=== PATIENT | female | born 1950 | race Caucasian/White ===

== ENCOUNTER 2020-06-25 19:09 | Emergency (ER) | payer OTHER ==
[~2020-06-25] VITALS: Wt 81.6 kg
[2020-06-25 20:16] LABS: BASO # 0.1 10*3/uL (0.0-0.1); BASO % 0.8 % (0.0-1.0); EOS # 0.4 10*3/uL (0.0-0.4); EOS % 4.5 % (1.0-4.0); HEMATOCRIT 42.6 % (37.0-47.0); LYMPH # 3.2 10*3/uL (1.3-4.4); LYMPH % 40.8 % (27.0-41.0); MEAN CELL VOLUME 89.9 fl (81.0-99.0); MEAN CORPUSCULAR HGB 30.4 pg (27.0-31.0); MEAN CORPUSCULAR HGB CONC 33.8 g/dl (33.0-37.0); MEAN PLATELET VOLUME 9.2 fl (9.6-12.3); MONO # 0.7 10*3/uL (0.1-1.0); MONO % 8.7 % (3.0-9.0); NEUT # 3.6 10*3/uL (2.3-7.9); NEUT % 44.9 % (47.0-73.0); PLATELET COUNT AUTOMATED 282 10*3/uL (130-400); RED BLOOD COUNT 4.74 10*6/uL (4.10-5.10); RED CELL DISTRI WIDTH 12.2 % (0-14.5); WHITE BLOOD COUNT 7.9 10*3/uL (4.8-10.8)
[2020-06-25 20:48] LABS: ALBUMIN 3.9 gm/dl (3.1-4.5); ALKALINE PHOSPHATASE 132 U/L (45-117); BUN 14 mg/dl (7-24); CHLORIDE 107 mmol/L (98-107); CREATININE 0.76 mg/dL (0.55-1.02); POTASSIUM 3.4 mmol/L (3.5-5.1); SGOT/AST 25 IU/L (3-35); SGPT/ALT 38 U/L (12-78); SODIUM 143 mmol/L (136-145); TOTAL PROTEIN 7.9 gm/dL (6.4-8.2)
[2020-06-25 20:52] LABS: TROPONIN I < 0.015 ng/ml (<0.045)
[2020-06-25] MEDS ORDERED: BENICAR20 MG PO (22:37)
== END 2020-06-25 22:45 | disposition home or self-care (01) ==
LOC: ED 19:09
PROVIDERS: Emergency Medicine
DX: I10 Essential (primary) hypertension (principal)

== ENCOUNTER 2023-01-02 13:03 | Emergency (ER) | payer OTHER ==
[~2023-01-02] VITALS: Ht 152.4 cm; Wt 74.8 kg
[~2023-01-02 13:03] MED LIST: BENICAR20 MG PO; PHENERGAN25 M3 PO
[2023-01-02] MEDS ORDERED: OXYBUTYNIN10 MG PO (13:27)
[2023-01-02] MEDS ORDERED: LISINOPRIL5 MG PO (13:28)
[2023-01-02] MEDS ORDERED: PREDNISONE50 MG PO (15:00)
== END 2023-01-02 15:06 | disposition home or self-care (01) ==
LOC: ED 13:03
DX: M10.9 Gout, unspecified (principal); I10 Essential (primary) hypertension; Z91.040 Latex allergy status

== ENCOUNTER 2023-07-15 08:54 | Emergency (ER) | payer OTHER ==
[~2023-07-15] VITALS: Ht 152.4 cm; Wt 81.6 kg
[~2023-07-15 08:54] MED LIST changes: +AMOXICILLIN500 M3 PO; +BUMETANIDE1 MG PO; +LEVOFLOXACIN750 M2 PO; +LISINOPRIL5 MG PO; +OXYBUTYNIN10 MG PO; +PREDNISONE50 MG PO; +ZESTRIL20 MG PO
[2023-07-15 09:05] VITALS: BP 134/74
[2023-07-15 09:25] LABS: BASO # 0.1 10*3/uL (0.0-0.1); BASO % 0.6 % (0.0-1.0); EOS # 0.2 10*3/uL (0.0-0.4); EOS % 2.5 % (1.0-4.0); HEMATOCRIT 41.8 % (37.0-47.0); LYMPH # 1.7 10*3/uL (1.3-4.4); LYMPH % 16.9 % (27.0-41.0); MEAN CELL VOLUME 92.3 fl (81.0-99.0); MEAN CORPUSCULAR HGB 29.1 pg (27.0-31.0); MEAN CORPUSCULAR HGB CONC 31.6 g/dl (33.0-37.0); MEAN PLATELET VOLUME 9.2 fl (9.6-12.3); MONO # 0.6 10*3/uL (0.1-1.0); MONO % 5.8 % (3.0-9.0); NEUT # 7.2 10*3/uL (2.3-7.9); NEUT % 73.8 % (47.0-73.0); PLATELET COUNT AUTOMATED 224 10*3/uL (130-400); RED BLOOD COUNT 4.53 10*6/uL (4.10-5.10); RED CELL DISTRI WIDTH 12.4 % (0-14.5); WHITE BLOOD COUNT 9.8 10*3/uL (4.8-10.8)
[2023-07-15] MEDS ORDERED: ZESTRIL10 MG PO (09:44)
[2023-07-15] MEDS ORDERED: POTASSIUM99 M7 PO (09:44)
[2023-07-15] MEDS ORDERED: AMOXICILLIN500 M3 PO (09:45)
[2023-07-15] MEDS ORDERED: LEVOFLOXACIN750 M2 PO (09:46)
[2023-07-15 09:47] LABS: ALKALINE PHOSPHATASE 106 U/L (46-116); BUN 10 mg/dl (9-23); CHLORIDE 104 mmol/L (98-107); LIPASE 34 U/L (12-53); POTASSIUM 3.2 mmol/L (3.4-5.1); SGPT/ALT 16 U/L (5-49)
[2023-07-15] MEDS ORDERED: SODIUM CHLORIDE 0.9% 1,000 ML IV SCH (09:55)
[2023-07-15] MEDS ORDERED: Ceftriaxone Sodium 1 GM/10 ML SYR IV ONE (10:45)
[2023-07-15 10:47] VITALS: BP 130/72
[2023-07-15 12:03] VITALS: BP 136/80
[2023-07-15] MEDS ORDERED: ASPIRIN, CHEWABLE 81 MG TAB PO ONE (12:30)
[2023-07-15] MEDS ORDERED: HEPARIN SODIUM 25,000 UNITS/250 ML BAG IV SCH (12:30)
[2023-07-15] MEDS ORDERED: Metoprolol Tartrate 25 MG TAB PO ONE (12:30)
[2023-07-15] MEDS ORDERED: POTASSIUM CHLORIDE 20 MEQ TAB PO ONE (12:35)
[2023-07-15] MEDS ORDERED: IOHEXOL 350 MG/ML 100 ML VIAL IV ONE ×2 (13:05→13:24)
[2023-07-15] MEDS ORDERED: SODIUM CHLORIDE 0.9% 100 ML BAG IV ONE (13:05)
[2023-07-15 13:16] LABS: ACT PARTIAL THROMBO TIME 27.1 SECONDS (20.0-32.1)
[2023-07-15] MEDS ORDERED: SODIUM CHLORIDE 0.9% 100 ML IV ONE (13:23)
[2023-07-15] MEDS ORDERED: BISACODYL 5 MG TAB PO PRN (13:45)
[2023-07-15] MEDS ORDERED: Acetaminophen/Hydrocodone 5 MG/325 MG TABLET PO PRN (13:45)
[2023-07-15] MEDS ORDERED: Magnesium Hydroxide 30 ML UDC PO PRN (13:45)
[2023-07-15] MEDS ORDERED: ACETAMINOPHEN 650 MG SUPP R PRN (13:45)
[2023-07-15] MEDS ORDERED: Ondansetron Hydrochloride 4 MG/2 ML VIAL IV PRN (13:45)
[2023-07-15] MEDS ORDERED: BISACODYL 10 MG SUPP R PRN (13:45)
[2023-07-15] MEDS ORDERED: ACETAMINOPHEN 325 MG TAB PO PRN (13:45)
[2023-07-15] MEDS ORDERED: ATORVASTATIN CALCIUM 80 MG TAB PO SCH (13:55)
[2023-07-15 15:15] VITALS: BP 126/79
[2023-07-15 17:35] VITALS: BP 128/80
[2023-07-15] MEDS ORDERED: Metoprolol Tartrate 25 MG TAB PO SCH (22:00)
[2023-07-16] MEDS ORDERED: Pantoprazole Sodium 40 MG VIAL IV SCH (06:00)
[2023-07-16] MEDS ORDERED: ASPIRIN ENTERIC COATED 81 MG TAB PO SCH (10:00)
== END 2023-07-15 19:06 | disposition admitted as inpatient to this hospital (09) ==
LOC: ED 08:54 → EDHOLD 12:47 → ED 19:06
PROVIDERS: Internal Medicine
DX: E87.6 Hypokalemia (principal); R65.20 Severe sepsis without septic shock; N39.0 Urinary tract infection, site not specified; I21.4 Non-ST elevation (NSTEMI) myocardial infarction; I11.0 Hypertensive heart disease with heart failure; I50.9 Heart failure, unspecified; Z91.040 Latex allergy status; Z90.89 Acquired absence of other organs

== ENCOUNTER 2023-10-19 17:56 | Inpatient (IN) | payer OTHER, MEDICARE ==
[~2023-10-19] VITALS: Ht 152.4 cm; Wt 88.6 kg
[~2023-10-19 17:56] MED LIST changes: +POTASSIUM99 M7 PO; +ZESTRIL10 MG PO
[2023-10-19 18:03] VITALS: BP 112/60
[2023-10-19 18:46] LABS: BASO # 0.1 10*3/uL (0.0-0.1); BASO % 0.5 % (0.0-1.0); EOS # 0.2 10*3/uL (0.0-0.4); EOS % 1.9 % (1.0-4.0); HEMATOCRIT 36.5 % (37.0-47.0); LYMPH # 1.4 10*3/uL (1.3-4.4); LYMPH % 11.1 % (27.0-41.0); MEAN CELL VOLUME 92.2 fl (81.0-99.0); MEAN CORPUSCULAR HGB 30.3 pg (27.0-31.0); MEAN CORPUSCULAR HGB CONC 32.9 g/dl (33.0-37.0); MEAN PLATELET VOLUME 9.2 fl (9.6-12.3); MONO # 1.1 10*3/uL (0.1-1.0); MONO % 8.5 % (3.0-9.0); NEUT # 9.6 10*3/uL (2.3-7.9); NEUT % 77.7 % (47.0-73.0); PLATELET COUNT AUTOMATED 244 10*3/uL (130-400); RED BLOOD COUNT 3.96 10*6/uL (4.10-5.10); RED CELL DISTRI WIDTH 12.6 % (0-14.5); WHITE BLOOD COUNT 12.4 10*3/uL (4.8-10.8)
[2023-10-19 19:09] LABS: ALKALINE PHOSPHATASE 95 U/L (46-116); BUN 10 mg/dl (9-23); CHLORIDE 103 mmol/L (98-107); POTASSIUM 3.8 mmol/L (3.4-5.1); SGPT/ALT 18 U/L (5-49)
[2023-10-19 19:44] LABS: BILIRUBIN Negative (Negative); BLOOD Negative (Negative); CLARITY Cloudy (Clear); COLOR Yellow (Yellow); GLUCOSE Negative (Negative); KETONE Trace (Negative); LEUKO ESTERASE 2+ (Negative); NITRITE Positive (Negative); PH 5.5 (4.5-8.0); UROBILINOGEN 0.2 E.U./dl (0.0-1.0)
[2023-10-19 19:56] LABS: BACTERIA 4+; WBC 51-100 wbc/hpf (0-5)
[2023-10-19 19:57] LABS: RBC 0-2 rbc/hpf (0-2)
[2023-10-19] MEDS ORDERED: SODIUM CHLORIDE 0.9% 1,000 ML IV ONE (20:15)
[2023-10-19] MEDS ORDERED: Cefepime Hydrochloride 1 GM in SODIUM CHLORIDE 0.9% 50 ML IV ONE (20:15)
[2023-10-19] MEDS ORDERED: LISINOPRIL10 M1 PO (20:31)
[2023-10-19] MEDS ORDERED: ELIQUIS5 M1 PO (20:31)
[2023-10-19] MEDS ORDERED: ACETAMINOPHEN 325 MG TAB PO PRN (21:00)
[2023-10-19] MEDS ORDERED: Magnesium Hydroxide 30 ML UDC PO PRN (21:00)
[2023-10-19] MEDS ORDERED: Acetaminophen/Hydrocodone 5 MG/325 MG TABLET PO PRN (21:00)
[2023-10-19] MEDS ORDERED: Ondansetron Hydrochloride 4 MG/2 ML VIAL IV PRN (21:00)
[2023-10-19] MEDS ORDERED: VANCOMYCIN HCL 1,500 MG in SODIUM CHLORIDE 0.9% 500 ML IV ONE (23:40)
[2023-10-20 02:28] VITALS: BP 119/58
[2023-10-20] MEDS ORDERED: Cefepime Hydrochloride 1 GM in SODIUM CHLORIDE 0.9% 50 ML IV ONE (04:00)
[2023-10-20 06:26] VITALS: BP 144/76
[2023-10-20 06:37] LABS: BASO % 0.3 % (0.0-1.0); EOS # 0.2 10*3/uL (0.0-0.4); EOS % 1.3 % (1.0-4.0); HEMATOCRIT 34.4 % (37.0-47.0); LYMPH # 1.4 10*3/uL (1.3-4.4); LYMPH % 11.3 % (27.0-41.0); MEAN CELL VOLUME 91.5 fl (81.0-99.0); MEAN CORPUSCULAR HGB 30.9 pg (27.0-31.0); MEAN CORPUSCULAR HGB CONC 33.7 g/dl (33.0-37.0); MEAN PLATELET VOLUME 10.6 fl (9.6-12.3); MONO # 0.9 10*3/uL (0.1-1.0); MONO % 7.6 % (3.0-9.0); NEUT # 9.6 10*3/uL (2.3-7.9); NEUT % 79.1 % (47.0-73.0); RED BLOOD COUNT 3.76 10*6/uL (4.10-5.10); RED CELL DISTRI WIDTH 12.5 % (0-14.5); WHITE BLOOD COUNT 12.2 10*3/uL (4.8-10.8)
[2023-10-20 06:40] LABS: PLATELET COUNT AUTOMATED 159 10*3/uL (130-400)
[2023-10-20 06:48] LABS: ALKALINE PHOSPHATASE 83 U/L (46-116); BUN 6 mg/dl (9-23); CHLORIDE 108 mmol/L (98-107); SGPT/ALT 13 U/L (5-49)
[2023-10-20 08:27] VITALS: BP 130/78
[2023-10-20] MEDS ORDERED: SODIUM CHLORIDE 0.9% 500 ML BAG IV ONE (08:55)
[2023-10-20] MEDS ORDERED: Vancomycin Hydrochloride 500 MG VIAL IV ONE (08:55)
[2023-10-20] MEDS ORDERED: Cefepime Hydrochloride 1 GM VIAL IV ONE (08:55)
[2023-10-20] MEDS ORDERED: Vancomycin Hydrochloride 1,000 MG VIAL IV ONE (08:55)
[2023-10-20] MEDS ORDERED: SODIUM CHLORIDE 0.9% 100 ML BAG IV ONE (08:57)
[2023-10-20] MEDS ORDERED: BUMETANIDE 1 MG TAB PO SCH (10:00)
[2023-10-20] MEDS ORDERED: LISINOPRIL 10 MG TAB PO SCH (10:00)
[2023-10-20] MEDS ORDERED: APIXABAN 5 MG TAB PO SCH (10:00)
[2023-10-20] MEDS ORDERED: OXYBUTYNIN PO SCH (10:00)
[2023-10-20] MEDS ORDERED: Oxybutynin Chloride 5 MG TAB PO SCH (10:40)
[2023-10-20] MEDS ORDERED: Ketorolac Tromethamine 30 MG/ML VIAL IV ONE (11:25)
[2023-10-20] MEDS ORDERED: AMMONIUM LACTATE 12% LOTION T SCH (11:55)
[2023-10-20] MEDS ORDERED: Cefepime Hydrochloride 2 GM in SODIUM CHLORIDE 0.9% 50 ML IV SCH (12:00)
[2023-10-20 12:13] LABS: URIC ACID 8.5 mg/dL (3.1-7.8)
[2023-10-20] MEDS ORDERED: COLCHICINE 0.6 MG TAB PO ONE (12:25)
[2023-10-20 15:45] VITALS: BP 122/55
[2023-10-20 15:50] VITALS: BP 119/56
[2023-10-20 20:06] VITALS: BP 120/68
[2023-10-20] MEDS ORDERED: VANCOMYCIN/WATER FOR INJ (PEG) 300 ML IV SCH (22:00)
[2023-10-21] VITALS: BP 139/59
[2023-10-21 06:56] LABS: BUN 10 mg/dl (9-23); CHLORIDE 105 mmol/L (98-107); POTASSIUM 3.7 mmol/L (3.4-5.1)
[2023-10-21 06:57] LABS: BASO # 0.1 10*3/uL (0.0-0.1); BASO % 0.4 % (0.0-1.0); EOS # 0.4 10*3/uL (0.0-0.4); EOS % 2.8 % (1.0-4.0); HEMATOCRIT 34.9 % (37.0-47.0); LYMPH # 2.3 10*3/uL (1.3-4.4); LYMPH % 18.1 % (27.0-41.0); MEAN CELL VOLUME 89.3 fl (81.0-99.0); MEAN CORPUSCULAR HGB 31.2 pg (27.0-31.0); MEAN PLATELET VOLUME 9.8 fl (9.6-12.3); MONO # 0.9 10*3/uL (0.1-1.0); MONO % 6.6 % (3.0-9.0); NEUT # 9.2 10*3/uL (2.3-7.9); NEUT % 71.7 % (47.0-73.0); RED BLOOD COUNT 3.91 10*6/uL (4.10-5.10); RED CELL DISTRI WIDTH 12.7 % (0-14.5); WHITE BLOOD COUNT 12.8 10*3/uL (4.8-10.8)
[2023-10-21 07:00] LABS: PLATELET COUNT AUTOMATED 265 10*3/uL (130-400)
[2023-10-21 08:00] VITALS: BP 131/60
[2023-10-21] MEDS ORDERED: Ceftriaxone Sodium 1 GM in SYRINGE INFUSION 10 ML IV SCH (10:00)
[2023-10-21] MEDS ORDERED: COLCHICINE 0.6 MG TAB PO SCH (10:00)
[2023-10-21] MEDS ORDERED: Ketorolac Tromethamine 30 MG/ML VIAL IV ONE (11:40)
[2023-10-21 12:00] VITALS: BP 129/69
[2023-10-21] MEDS ORDERED: PREDNISONE10 MG PO (12:16)
[2023-10-21] MEDS ORDERED: OMNICEF300 MG PO (12:16)
[2023-10-21] MEDS ORDERED: COLCHICINE0.6 M2 PO (12:16)
== END 2023-10-21 12:58 | disposition home or self-care (01) | DRG 871 ==
LOC: ED 17:56 → EDHOLD 20:26 → 4E 10-20 15:05
PROVIDERS: Internal Medicine; Nurse Practitioner Family; Student in an Organized Health Care Education/Training Program; ADMIT Internal Medicine; ATTEND Internal Medicine
DX: A41.9 Sepsis, unspecified organism (principal); G93.41 Metabolic encephalopathy; L03.115 Cellulitis of right lower limb; N30.00 Acute cystitis without hematuria; R31.9 Hematuria, unspecified; I10 Essential (primary) hypertension; R73.9 Hyperglycemia, unspecified; D72.829 Elevated white blood cell count, unspecified; D72.825 Bandemia; E78.2 Mixed hyperlipidemia; N39.46 Mixed incontinence; M25.531 Pain in right wrist; M10.9 Gout, unspecified; Z82.49 Family history of ischemic heart disease and other diseases of the circulatory system; Z82.3 Family history of stroke; Z91.040 Latex allergy status